=== PATIENT | female | born 1955 | race Caucasian/White ===

== ENCOUNTER 2018-01-03 07:38 | Inpatient (IN) | payer OTHER ==
[2017-12-20 15:23] VITALS: BMI 29.2
[2018-01-03] MEDS ORDERED: TRANEXAMIC ACID 1000 MG/10 ML VIAL IVPUSH ONE (07:54)
[2018-01-03] MEDS ORDERED: CELECOXIB 200 MG CAPSULE PO ONE (07:54)
[2018-01-03] MEDS ORDERED: GABAPENTIN 300 MG CAPSULE (FP) PO ONE (07:54)
[2018-01-03] MEDS ORDERED: oxyCODONE HCL 10 MG SUSTAINED ACTING TABLET PO ONE (07:54)
[2018-01-03] MEDS ORDERED: CEFAZOLIN 1 GM/D5W 1 GRAM/50 ML BAG IVPB ONE (07:54)
--- NOTE | 2018-01-03 08:04 | HP ---
[facility] - Chief Complaint Chief Complaint: right hip pain - Past Medical History Allergies/Adverse Reactions: Allergies Allergy/AdvReac Type Severity Reaction Status Date / Time apple Allergy Severe ANAPHYLACTIC Verified 12/20/17 15:08 REACTION No Known Drug Allergies Allergy Severe Verified 12/20/17 15:08 potato Allergy Severe Difficulty Verified 12/20/17 15:08 Breathing - Current Medications Current Medications: Home Medications Medication Instructions Recorded Acetaminophen [Tylenol Extra 500 mg PO ASDIR PRN 12/20/17 Strength] Cholecalciferol (Vitamin D3) 2,000 unit PO DAILY 12/20/17 [Vitamin D] Cyanocobalamin [Vitamin B12 -] 1,000 mcg PO DAILY 12/20/17 Fexofenadine HCl [Lubna Allergy] 180 mg PO DAILY 12/20/17 Iron 65 mg PO DAILY 12/20/17 Levothyroxine [Synthroid -] 75 mcg PO DAILY 12/20/17 Vitamin K2 70 mcg PO DAILY 12/20/17 Satellite Physical Exam - Physical Examination General Appearance: Well Nourished, Well Developed, Alert & Oriented x3 ENT: Clear Lung: Normal air movement Heart: Regular rate & rhythm Extremities: Other (right hip- + ttp, decr rom, nvi xrays show grade 4 hip djd) Neurological: Intact, Alert, Oriented Satellite Impression/Plan - Impression/Plan Impression: right hip djd Operative Procedure: right varghese thr Date to be Performed: 01/03/18
[2018-01-03] MEDS ORDERED: ONDANSETRON 4 MG/2 ML VIAL IVPUSH PRN (08:27)
[2018-01-03] MEDS ORDERED: MIDAZOLAM HCL 2 MG/2 ML SINGLE DOSE VIAL ONE (08:45)
[2018-01-03] MEDS ORDERED: DEXAMETHASONE SOD PHOSPHATE/PF 10 MG/ML SDV ONE (08:45)
[2018-01-03] MEDS ORDERED: LIDOCAINE 1% P/F 10 MG/ML VIAL ONE (08:45)
[2018-01-03] MEDS ORDERED: BUPIVACAINE HCL/PF (5 MG/ML) 30 ML VIAL IJ ONE (08:45)
[2018-01-03] MEDS ORDERED: SUCCINYLCHOLINE CHLORIDE 200 MG/10 ML VIAL ONE (09:39)
[2018-01-03] MEDS ORDERED: PROPOFOL 20 ML ONE (09:39)
[2018-01-03] MEDS ORDERED: TRANEXAMIC ACID 1000 MG/10 ML VIAL ONE (09:58)
[2018-01-03] MEDS ORDERED: ONDANSETRON 4 MG/2 ML VIAL ONE ×2 (09:58→13:27)
[2018-01-03] MEDS ORDERED: DEXAMETHASONE SOD PHOSPHATE 4 MG/1 ML VIAL ONE (09:58)
[2018-01-03] MEDS ORDERED: ceFAZolin SODIUM 1 GM VIAL ONE (09:58)
[2018-01-03] MEDS ORDERED: VANCOMYCIN 1,000 MG VIAL (RESTRICTED TO ID ONLY) IVPB ONE (11:37)
[2018-01-03] MEDS ORDERED: MAGNESIUM HYDROX 2400MG/30ML ORAL SUSPENSION 30 ML CUP PO PRN (12:04)
[2018-01-03] MEDS ORDERED: MAG HYDROX/AL HYDROX/SIMETH 30 ML UNIT-DOSE CUP PO PRN (12:04)
--- NOTE | 2018-01-03 12:06 | OP ---
Operative Note - Note: Operative Date: 01/03/18 (katherin) Pre-Operative Diagnosis: right hip djd Operation: right varghese thr Post-Operative Diagnosis: Same as Pre-op Surgeon: Chun Ayers Senior Business Manager: Fransisco Mcclellan Anesthesiologist/WATER TAXI FERRY OPERATOR: Petrona Kwan Anesthesia: Spinal, Local Specimens Removed: femoral head Estimated Blood Loss (mls): 200 Operative Report Dictated: Yes
[2018-01-03] MEDS ORDERED: LACTATED RINGERS SOLUTION 1,000 ML IV SCH (12:15)
[2018-01-03] MEDS ORDERED: ACETAMINOPHEN 325 MG TABLET (FP) ONE (13:34)
[2018-01-03] MEDS ORDERED: oxyCODONE HCL 5 MG TABLET ONE (13:35)
[2018-01-03] MEDS: oxyCODONE HCL 5 MG TABLET PO PRN ×3 (13:35→20:53)
--- NOTE | 2018-01-03 16:41 | OP ---
DATE OF OPERATION: 01/03/2018 PREOPERATIVE DIAGNOSIS: Degenerative joint disease, right hip. POSTOPERATIVE DIAGNOSIS: Degenerative joint disease, right hip. PROCEDURE: Right total hip replacement with robotic-assisted navigation (MAKOplasty). SURGICAL ATTENDING: Chun Ayers MD WOMEN'S GARMENT FITTER: BLANE Caballero ANESTHESIA: Regional and spinal. CLOSURE: A 52 Trident II Press-Fit acetabulum with 3 screws, No. 6 Accolade II femoral stem, a 36 ceramic standard femoral head; number 1 Vicryl fascia, 0 and 2-0 subcutaneous, 3-0 Monocryl subcuticular, skin glue for skin, 4-0 undyed Vicryl for pin sites. ESTIMATED BLOOD LOSS: Approximately 150 mL. COMPLICATIONS: None. CONDITION: To recovery in stable condition. DESCRIPTION OF PROCEDURE: Patient taken to the operating room on January 03, 2018. Spinal and regional anesthesia was administered by the anesthesiologist. IV Kefzol was administered prophylactically prior to the case, as was TXA. Patient was placed in lateral decubitus position with all prominences well padded. The right hip area was prepped and draped in the usual sterile fashion. Three stab incisions were made over the iliac crest. Three threaded pins were placed through each one of these stab incisions in between the 2 tables, achieving excellent fixation. To these pins were fastened the navigation array for the LETTY device. A posterolateral approach to the hip was used. A 10- to 15-cm longitudinal incision over the posterolateral aspect of the greater trochanter was incised. Hemostasis achieved with Bovie cautery. Sharp dissection was carried down to the level of the fascia which was opened the entire length of the incision. The gluteus latha fibers were spread, exposing the greater trochanter. A checkpoint was placed in the greater trochanter. This checkpoint and the inferior pole of the patella were used to gain preoperative limb lengths and offsets. The short external rotators were peeled off the capsule. A posterior capsulotomy was then performed, and the hip was dislocated. The hip was then osteotomized on the femoral neck at the appropriate level as directed by the navigation device. Anterior and posterior retractors were placed, exposing the acetabulum. Large osteophytes were encountered. The hip was registered first with the navigation device and then confirmed with an excellent registration with "popping the bubbles." Osteophytes anterior and posterior were then removed to open up the acetabulum for reaming. The acetabulum was then reamed with a 52 reamer to the appropriate depth with the appropriate orientation, achieving excellent fixation. As we had some area posteriorly, 3 screws were placed to give adequate fixation to the acetabular cup. The remainder of the osteophytes anterior and posterior was also debrided so as not to impinge on the range of motion. Next, our attention was directed to the femur. The femur was prepared using a box chisel, canal finder, and serial broaches until a number 6 achieved excellent fixation and fill of the canal. Trial reduction with a standard 36-mm head achieved excellent alevism of limb length, was stable to marked flexion, had a positive hang test, negative telescoping, and was stable in external rotation and extension. Trial component was removed. The real component was then malleted into place. A 36 ceramic head was cold welded to the trunnion; hip was reduced. Range of motion and stability, limb lengths were as described earlier. The hip was pulse antibiotic irrigated. Vancomycin powder was placed in the wound. The fascia was then closed using number 1 Vicryl, 0 and 2-0 for subcutaneous, and 3-0 Monocryl subcuticular, with skin glue for skin, and 4-0 undyed Vicryl for pin sites. Sterile Aquacel dressing was applied. Patient was awakened from anesthesia and transferred to recovery in stable condition. Bilateral SCDs and abduction pillow were applied. X-rays shows excellent position of all screws and hardware. Cris [id number]
[2018-01-03] MEDS: CEFAZOLIN 1 GM/D5W 1 GRAM/50 ML BAG IVPB SCH (18:00)
[2018-01-03] MEDS: SENNOSIDES/DOCUSATE COMBO (SENNA PLUS) TABLET (UD) PO SCH (21:25)
[2018-01-03] MEDS: GABAPENTIN 300 MG CAPSULE (FP) PO SCH (21:25)
[2018-01-03] MEDS: oxyCODONE HCL 10 MG SUSTAINED ACTING TABLET PO SCH (21:25)
[2018-01-04] MEDS: CEFAZOLIN 1 GM/D5W 1 GRAM/50 ML BAG IVPB SCH (02:00)
[2018-01-04] MEDS: LEVOTHYROXINE NA 75 MCG TABLET (FP) PO SCH (06:35)
[2018-01-04] MEDS: oxyCODONE HCL 5 MG TABLET PO PRN ×4 (06:35→20:13)
[2018-01-04 07:56] LABS: HEMATOCRIT 31.5 % (32.4-45.2); HEMOGLOBIN 10.3 GM/dl (10.7-15.3); MCH 28.5 pg (25.7-33.7); MCHC 32.7 g/dl (32.0-36.0); MEAN CELL VOLUME 87.2 fl (80-96); MEAN PLT VOLUME 8.2 fl (7.5-11.1); PLATELET COUNT 229 K/MM3 (134-434); RBC 3.61 M/mm3 (3.60-5.2); RDW 12.3 % (11.6-15.6); WHITE BLOOD COUNT 9.6 K/mm3 (4.0-10.8)
[2018-01-04] MEDS: LACTATED RINGERS SOLUTION 1,000 ML IV SCH ×2 (07:57→08:21)
[2018-01-04] MEDS: ASPIRIN 325 MG TABLET PO SCH (08:20)
[2018-01-04] MEDS: GABAPENTIN 300 MG CAPSULE (FP) PO SCH ×2 (09:11→21:30)
[2018-01-04] MEDS: MULTIVITAMINS (DAILY MVI) TABLET (FP) PO SCH (09:11)
[2018-01-04] MEDS: oxyCODONE HCL 10 MG SUSTAINED ACTING TABLET PO SCH ×2 (09:11→21:29)
[2018-01-04] MEDS: PANTOPRAZOLE 40 MG TABLET (FP) PO SCH (09:11)
[2018-01-04] MEDS: SENNOSIDES/DOCUSATE COMBO (SENNA PLUS) TABLET (UD) PO SCH ×2 (09:11→21:29)
--- NOTE | 2018-01-04 09:40 | PN ---
Progress Note (short form) - Note Progress Note: Ortho Pt seen and examined s/p right varghese thr pod #1. Pt still has some numbness in right foot Selected Entries 01/04/18 09:16 Temperature 98.4 F Pulse Rate 62 Respiratory 16 Rate Blood Pressure 110/65 Laboratory Tests 01/04/18 07:25 WBC 9.6 Hgb 10.3 L Hct 31.5 L Plt Count 229 Dressing c/d/i, calf soft, nt decr sensation rt foot, unable to DF at this time(nerve block) a/p- PT hip precautions dvt ppx pain control d/c home tomorrow if stable
--- NOTE | 2018-01-04 10:23 | PN ---
Progress Note (short form) - Note Progress Note: 62F POD1 s/p R THR under spinal anesthetic with peripheral nerve block for post operative pain relief. Pt states that pain is well controlled, c/o right foot numbness and swelling. AVSS. Will continue to monitor.
[2018-01-04] MEDS: ACETAMINOPHEN 325 MG TABLET (FP) PO PRN (22:49)
[2018-01-05] MEDS: ACETAMINOPHEN 325 MG TABLET (FP) PO PRN ×2 (05:32→13:38)
[2018-01-05] MEDS: LEVOTHYROXINE NA 75 MCG TABLET (FP) PO SCH (06:28)
[2018-01-05 07:54] LABS: HEMATOCRIT 28.6 % (32.4-45.2); HEMOGLOBIN 9.3 GM/dl (10.7-15.3); MCH 28.6 pg (25.7-33.7); MCHC 32.5 g/dl (32.0-36.0); MEAN PLT VOLUME 8.7 fl (7.5-11.1); PLATELET COUNT 176 K/MM3 (134-434); RBC 3.25 M/mm3 (3.60-5.2); RDW 12.6 % (11.6-15.6); WHITE BLOOD COUNT 7.8 K/mm3 (4.0-10.8)
--- NOTE | 2018-01-05 08:18 | PN ---
Progress Note (short form) - Note Progress Note: Ortho Pt seen and examined s/p right varghese thr pod #2. + foot drop Selected Entries 01/05/18 06:41 Temperature 99.1 F Pulse Rate 99 H Respiratory 18 Rate Blood Pressure 90/51 L Laboratory Tests 01/05/18 07:25 WBC 7.8 Hgb 9.3 L Hct 28.6 L Plt Count 176 Dressing c/d/i, calf soft, nt + foot drop a/p- will order AFO brace PT hip precautions dvt ppx pain control d/c home tomorrow if stable
[2018-01-05] MEDS: ASPIRIN 325 MG TABLET PO SCH (08:32)
[2018-01-05] MEDS: oxyCODONE HCL 5 MG TABLET PO PRN ×4 (08:32→20:30)
[2018-01-05] MEDS: LACTATED RINGERS SOLUTION 1,000 ML IV SCH (08:36)
[2018-01-05] MEDS: MULTIVITAMINS (DAILY MVI) TABLET (FP) PO SCH (10:58)
[2018-01-05] MEDS: FERROUS SO4 325 MG TABLET (FP) PO SCH (10:58)
[2018-01-05] MEDS: GABAPENTIN 300 MG CAPSULE (FP) PO SCH ×2 (10:58→21:31)
[2018-01-05] MEDS: PANTOPRAZOLE 40 MG TABLET (FP) PO SCH (10:58)
[2018-01-05] MEDS: SENNOSIDES/DOCUSATE COMBO (SENNA PLUS) TABLET (UD) PO SCH ×2 (10:58→21:31)
[2018-01-05] MEDS: oxyCODONE HCL 10 MG SUSTAINED ACTING TABLET PO SCH ×2 (10:58→21:31)
[2018-01-06] MEDS: oxyCODONE HCL 5 MG TABLET PO PRN ×4 (01:53→13:06)
[2018-01-06] MEDS: ACETAMINOPHEN 325 MG TABLET (FP) PO PRN (01:57)
[2018-01-06] MEDS: LEVOTHYROXINE NA 75 MCG TABLET (FP) PO SCH (06:02)
[2018-01-06 06:27] VITALS: BP 106/55; PULSE 101; TEMP 99.3
[2018-01-06] MEDS: ASPIRIN 325 MG TABLET PO SCH (08:16)
[2018-01-06] MEDS: LACTATED RINGERS SOLUTION 1,000 ML IV SCH (08:17)
--- NOTE | 2018-01-06 08:18 | DS ---
Physical Examination Vital Signs: Vital Signs Temperature 99.3 F 01/06/18 06:26 Pulse Rate 101 H 01/06/18 06:26 Respiratory Rate 18 01/06/18 06:26 Blood Pressure 106/55 L 01/06/18 06:26 O2 Sat by Pulse Oximetry (%) 96 01/06/18 06:26 Labs: CBC, BMP 01/05/18 07:25 Discharge Summary Reason For Visit: OSTEOARTHRITIS Procedures: Principal: right thr Hospital Course: admitted for elective right varghese thr, developed post-op foot drop, AFO brace applied, stable for d/c Condition: Good - Instructions Diet, Activity, Other Instructions: Post-op Instructions-Total Hip Replacement Call the office for a follow-up appointment in 1 week - [phone] Aspirin 325mg daily for 6 weeks. Pain medication was sent into your pharmacy. Apply Graduated Compression Stockings (TEDs) to both lower extremities- remove daily for hygiene ONLY Apply Sequential Compression Device (SCDs) to both Lower extremities remove for PT and hygiene ONLY Apply cold packs to affected area for 15 minutes every 2 hours. Physical Therapist will come to your home for the first 5 days. You will be set up with outpatient PT at your first post-operative visit. Patient may ambulate as tolerated-encourage self care (at least every 2-3 hours while awake) with walker or cane Maintain Aquacel (waterproof) dressing to operative wound (will be removed by surgeon at first office visit) Shower with Aquacel dressing in place-if Aquacel integrity compromised, remove and apply dry sterile dressing and notify Orthopedist. DO NOT SHOWER unless Orthopedists approves without Aquacel dressing CONTACT THE OFFICE FOR ANY CHANGE IN YOUR CONDITION (for example-fever greater than 102 degrees, excessive bleeding from operative site, purulent drainage, severe swelling or pain) GO TO THE EMERGENCY ROOM IF THERE IS A MEDICAL EMERGENCY Hip Precautions: * Keep a rolled towel under affected heel while in bed or chair (to keep knee in extension) * Dependent upon approach: * Posterior - do not cross legs; do not sit on low chairs or toilets. * If you have any questions, please do not hesitate to call the office - [phone]. Referrals: Chun Ayers MD [Staff Physician] - Disposition: VNS/HOME HEALTH CARE - Home Medications Comprehensive Discharge Medication List: Ambulatory Orders Acetaminophen [Tylenol Extra Strength] 500 mg PO ASDIR PRN 12/20/17 Cholecalciferol (Vitamin D3) [Vitamin D3] 2,000 unit PO DAILY 12/20/17 Cyanocobalamin [Vitamin B12 -] 1,000 mcg PO DAILY 12/20/17 Fexofenadine HCl [Lubna Allergy] 180 mg PO DAILY 12/20/17 Iron 65 mg PO DAILY 12/20/17 Levothyroxine [Synthroid -] 75 mcg PO DAILY 12/20/17 Vitamin K2 70 mcg PO DAILY 12/20/17 Aspirin [ASA -] 325 mg PO DAILY@0800 tablet 01/03/18 Oxycodone HCl/Acetaminophen [Percocet 5-325 mg Tablet -] 1 - 2 tab PO Q6H #50 tab MDD 8 01/03/18
--- NOTE | 2018-01-06 08:27 | PN ---
Progress Note (short form) - Note Progress Note: ASS COMFORTABLE SHE WALKED TWICE AROUND THE [place] YESTERDAY AQUACEL DRESSING DRY AND INTACT MINIMAL THIGH SWELLING CALF SOFT AND NT DECREASED SENSTION IN FOOT AND LATERAL LEG NO ACTIVE DORSIFLEXION OF ANKLE AND TOES STRONG PLANTAR FLEXION OF ANKLE EXCELLENT STRENGTH IN KNEE EQUAL LIMB LENGTHS H/H STABLE IMP: 2 DAYS S/P RIGHT ELIAS WITH FOOT DROP BUT OTHERWISE DOING WELL PLAN: AFO TO BE DELIVERED TODAY, WBAT WITH HIP PRECAUTIONS, DC TO HOME WITH HOME PT, F/U MY OFFICE X 10 DAYS. WE WILL FOLLOW FOOT DROP. I DISCUSSED THIS CONDITION WITH PATIENT IN GREAT DETAIL. PATIENT INFORMED THAT USUALLY THIS CONDITION IS TRANSIENT AND WILL RESOLVE SPONTANEOUSLY OVER THE NEXT FEW WEEKS. SHE WILL USE THE AFO FOR NOW TO AID IN AMBULATION AND TO AVOID EQUINUS CONTRACTURE. IF CONDITION DOES NOT IMPROVE SHE MAY REQUIRE EITHER PERMANENT AFO USE OR OTHER SURGICAL PROCEDURES TO TREAT THE CONDITION. FOR NOW, WE WILL WAIT AND SEE WHAT HAPPENS
[2018-01-06] MEDS: GABAPENTIN 300 MG CAPSULE (FP) PO SCH (10:11)
[2018-01-06] MEDS: PANTOPRAZOLE 40 MG TABLET (FP) PO SCH (10:11)
[2018-01-06] MEDS: FERROUS SO4 325 MG TABLET (FP) PO SCH (10:11)
[2018-01-06] MEDS: oxyCODONE HCL 10 MG SUSTAINED ACTING TABLET PO SCH (10:11)
[2018-01-06] MEDS: SENNOSIDES/DOCUSATE COMBO (SENNA PLUS) TABLET (UD) PO SCH (10:11)
[2018-01-06] MEDS: MULTIVITAMINS (DAILY MVI) TABLET (FP) PO SCH (10:11)
--- NOTE | 2018-01-06 14:25 | PATH ---
Surgical Pathology Report Patient Name: JOSÉ MIGUEL JOE Med. Rec. #: [id number] /Age/Gender: 1955 (Age: 62) / F Account: [id number] Location: [facility] MED-SURG Taken: 01/03/2018 Received: 01/03/2018 Reported: 01/05/2018 Physicians: Chun Ayers M.D. Specimen(s) Received RIGHT FEMORAL HEAD Clinical History Osteoarthritis right hip Final Diagnosis BONE, FEMORAL HEAD, RIGHT, TOTAL HIP REPLACEMENT MAKOPASTY: BONE WITH DEGENERATIVE JOINT DISEASE. Electronically Signed Noemy Sultana M.D. Gross Description Received in formalin, labeled "right femoral head," is a 4.3 x 4.3 x 3.8 cm. femoral head with a 1.6 cm in length portion of femoral neck attached. The margin of resection is smooth. There is a 4.5 cm in greatest dimension area of eburnation present. The remaining articular surface is swartz-yellow and diffusely nodular and granular. The underlying trabecular bone is yellow and hard. A b2b outside sales representative section is submitted in one cassette, following decalcification. /01/04/201801/04/2018
== END 2018-01-06 13:19 | disposition home health service (06) | DRG 470 ==
LOC: FM/S 07:38
PROVIDERS: ADMIT Orthopaedic Surgery; ATTEND Orthopaedic Surgery
PROC: 8E0Y0CZ Robotic Assisted Procedure of Lower Extremity, Open Approach (ICD-10-PCS; 2018-01-03)
PROC: 0SR903A Replacement of Right Hip Joint with Ceramic Synthetic Substitute, Uncemented, Open Approach (ICD-10-PCS; principal; 2018-01-03 10:11)
DX: M16.11 Unilateral primary osteoarthritis, right hip (principal)
CPT/HCPCS: 36415; 73502-TC-RT; 85027; 88305-TC; 88311-TC; 94760; 97116-GP; 97162-GP